=== PATIENT | male | born 1965 | race American Indian/Alaskan Native ===

== ENCOUNTER 2023-12-07 19:46 | Emergency (ER) | payer OTHER ==
[~2023-12-07] VITALS: Ht 170.2 cm; Wt 98.8 kg
[2023-12-07 20:17] LABS: Basophils # (auto) 0.1 10 ^3/uL (0-0.2); Basophils % (auto) 0.7 % (0.0-2.0); Eosinophils # (auto) 0.4 10 ^3/uL (0-0.8); Eosinophils % (auto) 2.8 % (0.0-7.0); Hematocrit 44.7 % (41.0-53.0); Hemoglobin 15.8 g/dL (13.5-17.5); Lymphocytes # (auto) 1.9 10 ^3/uL (0.4-5.4); Lymphocytes % (auto) 14.2 % (10.0-50.0); Mean Corpuscular Hemoglobin 29.1 pg (28.0-32.0); Mean Corpuscular Hgb Conc. 35.4 g/dL (32.0-36.0); Monocytes # (auto) 1.2 10 ^3/uL (0-1.3); Monocytes % (auto) 8.7 % (0.0-12.0); Neutrophils # (auto) 9.8 10 ^3/uL (1.6-8.6); Neutrophils % (auto) 73.6 % (37.0-80.0); Platelet Count (auto) 235 10^3/uL (140-450); Red Blood Cells 5.44 10^6/uL (4.5-5.90); Red Cell Distribution Width 13.5 % (11.8-14.3); White Blood Cell 13.3 10^3/uL (4.4-10.8)
[2023-12-07 20:23] LABS: Urine Bacteria None Seen /hpf (None Seen)
[2023-12-07 20:47] LABS: Alanine Aminotransferase 24 U/L (7-40); Alkaline Phosphatase 90 U/L (46-116); Anion Gap 7 (5-15); Aspartate Aminotransferase 15 U/L (13-40); BUN/Creatinine Ratio 20.2 (10.0-20.0); Blood Urea Nitrogen 19 mg/dL (9-23); Calcium 9.7 mg/dL (8.7-10.4); Carbon Dioxide 24 mmol/L (20-30); Chloride 104 mmol/L (98-107); Glucose 165 mg/dL (74-106); Lipase 38 U/L (12-53); Potassium 3.9 mmol/L (3.5-5.1); Sodium 135 mmol/L (136-145)
[2023-12-07 20:48] LABS: Albumin 4.5 g/dL (3.2-4.8); Bilirubin, Total 0.5 mg/dL (0.2-1.0); Total Protein 7.8 g/dL (5.7-8.2)
[2023-12-07 20:49] LABS: Urine Blood 1+ /uL (Negative); Urine Clarity Clear (Clear); Urine Color Yellow (Yellow); Urine Mucus FEW (None Seen); Urine Protein, UAD Negative (Negative); Urine Specific Gravity 1.026 (1.001-1.035); Urine Urobilinogen Normal (Negative); Urine WBC 1 /hpf (0 - 3)
[2023-12-07] MEDS: PIPERACILLIN-TAZOB 3.375GM 100 ML IV ONE (21:51)
[2023-12-07] MEDS: IOHEXOL 300 MG/ML 100ML BOTTLE IJ ONE (22:24)
[2023-12-08 05:39] VITALS: BP 138/87; PULSE 89; RESP 16; TEMP 98.4; O2SAT 96
== END 2023-12-08 05:20 | disposition short-term general hospital (02) ==
LOC: ER 19:46
DX: L02.211 Cutaneous abscess of abdominal wall (principal); E11.9 Type 2 diabetes mellitus without complications; Z88.1 Allergy status to other antibiotic agents
CPT/HCPCS: 36415; 74177; 80053; 81001; 83605; 83690; 84484; 85025; 93005; 96365; 99285; J2543; Q9967